=== PATIENT | female | born 1955 ===

== ENCOUNTER → 2023-07-25 | Day surgery (SDC) | payer OTHER ==
[~2023-07-25] VITALS: Ht 149.9 cm; Wt 54.4 kg
[~2023-07-25] MED LIST: AMBIEN10 MG PO; CLONAZEPAM0.5 MG PO; CRESTOR5 MG PO; JANUMET XR 50-1 EAC1 PO; LEVO-T100 MCG PO; OXYC1TAB9 PO; PRILOSEC10 MG PO; WELLBUTRIN XL300 MG PO
== END | disposition home or self-care (01) ==
LOC: ADM 07-18 10:45 → CIR.AMB 05:45
PROVIDERS: ATTEND Surgery
DX: K62.5 Hemorrhage of anus and rectum (principal); K64.2 Third degree hemorrhoids; K64.8 Other hemorrhoids; K64.4 Residual hemorrhoidal skin tags; K62.89 Other specified diseases of anus and rectum; Z20.822 Contact with and (suspected) exposure to COVID-19; E11.9 Type 2 diabetes mellitus without complications; E78.5 Hyperlipidemia, unspecified; E03.9 Hypothyroidism, unspecified